=== PATIENT | female | born 1975 | race Caucasian/White ===

== ENCOUNTER 2020-06-08 22:05 | Emergency (ER) | payer MEDICAID ==
--- NOTE | 2020-06-08 23:11 | EDM.PDOC ---
ED HPI GENERAL MEDICAL PROBLEM - General Chief Complaint: Laceration Stated Complaint: laceration Time Seen by Provider: 06/08/20 22:55 Source of Information: Reports: Patient History Limitations: Reports: No Limitations - History of Present Illness INITIAL COMMENTS - FREE TEXT/NARRATIVE: was using cheese grater when she accidently cut the tip of her left thumb off. Very thin slice gone. She is continuously bleeding as she is on xarelto. She has tried to do multiple dressings and pressure on it at home and it continues to bleed. Onset: Today Location: Reports: Upper Extremity, Left Quality: Reports: Burning Associated Symptoms: Reports: No Other Symptoms Left Finger-Thumb Pain Score (Numeric/FACES): 4 - Related Data Allergies Allergy/AdvReac Type Severity Reaction Status Date / Time No Known Allergies Allergy Verified 06/08/20 22:09 Home Meds: Home Meds Albuterol [Ventolin HFA] 2 puff INH Q6HR PRN 06/08/20 [History] Fluticasone/Salmeterol [Advair HFA 230-21 MCG] 2 puff INH BID 06/08/20 [History] Rivaroxaban [Xarelto] 10 mg PO DAILY 06/08/20 [History] Past Medical History Respiratory History: Reports: Asthma, PE - Infectious Disease History Infectious Disease History: Reports: Chicken Pox - Past Surgical History GI Surgical History: Reports: Cholecystectomy Female Surgical History: Reports: Section, Hysterectomy Social & Family History - Tobacco Use Tobacco Use Status *Q: Never Tobacco User - Caffeine Use Caffeine Use: Reports: Soda - Recreational Drug Use Recreational Drug Use: No ED ROS GENERAL - Review of Systems Review Of Systems: See Below Constitutional: Denies: Fever, Chills Skin: Reports: Wound (tip of left thumb) ED EXAM, SKIN/RASH Exam: See Below Exam Limited By: No Limitations General Appearance: Alert, WD/WN, Mild Distress Skin: Wound/Incision (tip of the left thumb does have avulsion of the skin at the tip. It is actively bleeding. Gelfoam and pressure dressing applied with coban. No bleeding through the dressing noted.) Course - Vital Signs Last Recorded V/S: Last Vital Signs Temp 98 F 06/08/20 22:05 Pulse 71 06/08/20 22:05 Resp 18 06/08/20 22:05 BP 147/79 H 06/08/20 22:05 Pulse Ox 96 06/08/20 22:05 Departure - Departure Time of Disposition: 23:08 Disposition: Home, Self-Care 01 Condition: Good Clinical Impression: Avulsion of finger tip Qualifiers: Encounter type: initial encounter Qualified Code(s): S61.209A - Unspecified open wound of unspecified finger without damage to nail, initial encounter - Discharge Information *PRESCRIPTION DRUG MONITORING PROGRAM REVIEWED*: Not Applicable *COPY OF PRESCRIPTION DRUG MONITORING REPORT IN PATIENT JAVED: Not Applicable Referrals: David Kendrick MD [Primary Care Provider] - Forms: ED Department Discharge Additional Instructions: Keep dressing on the finger until saturday and then gently remove and then redress as needed elevate finger tonight recheck if any new concerns. Sepsis Event Note (ED) - Evaluation Sepsis Screening Result: No Definite Risk - Focused Exam Vital Signs: Vital Signs Temp Pulse Resp BP Pulse Ox 06/08/20 22:05 98 F 71 18 147/79 H 96 - Problem List & Annotations (1) Avulsion of finger tip SNOMED Code(s): 323525637, 760200106 Code(s): S61.209A - UNSP OPEN WOUND OF UNSP FINGER W/O DAMAGE TO NAIL, INIT Status: Acute Priority: High Current Visit: Yes Qualifiers: Encounter type: initial encounter Qualified Code(s): S61.209A - Unspecified open wound of unspecified finger without damage to nail, initial encounter - Problem List Review Problem List Initiated/Reviewed/Updated: Yes
== END 2020-06-08 23:15 | disposition home or self-care (01) ==
LOC: CC.ED 22:05
DX: S61.002A Unspecified open wound of left thumb without damage to nail, initial encounter (principal); J45.909 Unspecified asthma, uncomplicated; Z86.711 Personal history of pulmonary embolism; Z79.01 Long term (current) use of anticoagulants; Z79.899 Other long term (current) drug therapy; W26.8XXA Contact with other sharp object(s), not elsewhere classified, initial encounter
CPT/HCPCS: 99283